=== PATIENT | male | born 1990 ===

== ENCOUNTER → 2020-10-13 | Outpatient (CLI) | payer OTHER ==
[~2020-10-13] MED LIST: ALEVE LIQCAPS PO; MUCINEX 60600 MG/TA1 PO; PROAIR HFA0.09 MG/AC IH; TYLENOL 325MG325 MG PO; ZITHROMAX500 M2 PO
== END ==
LOC: COL.RAD 11:13
DX: I86.8 Varicose veins of other specified sites (principal); Z90.79 Acquired absence of other genital organ(s); Q87.89 Other specified congenital malformation syndromes, not elsewhere classified
CPT/HCPCS: Q9967

== ENCOUNTER → 2021-06-07 | Outpatient (CLI) | payer OTHER | LOC: ZCOL.LAB 17:05 | DX: S31.30XA Unspecified open wound of scrotum and testes, initial encounter (principal) ==